=== PATIENT | male | born 1985 | race Caucasian/White ===

== ENCOUNTER 2019-11-26 18:32 | Emergency (ER) | payer OTHER, SELFPAY ==
[2019-11-26 18:41] VITALS: BP 112/75; PULSE 96; RESP 20; TEMP 37.4; O2SAT 100
--- NOTE | 2019-11-26 18:45 | ED.URI ---
HPI - URI/Sore Throat General Chief Complaint: Upper Respiratory Infection Stated Complaint: fever/cough/body aches Time Seen by Provider: 11/26/19 18:46 Source: patient, family and RN notes reviewed History of Present Illness HPI Narrative: Patient is a 34-year-old male that presents the urgent care with complaints of dry cough for 1 week, body aches, fever. Patient states that he was placed on Levaquin and prednisone from his PCP on the and he has been taking them as prescribed. Patient states that the initially felt better for 2 days and now has been feeling a little worse over the last 24 hours with fevers. Patient has not attempted to treat the fever. Patient did not call his PCP for further follow-up. Patient denies any imaging prior to treatment. No other acute complaints. Patient appears slightly fatigued but otherwise no acute distress noted. No obvious dyspnea noted. Patient spouse aware of the plan of care. Related Data Home Medications Medication Instructions Recorded Confirmed Robitussin Cough and Cold CF 11/26/19 levofloxacin 500 mg PO DAILY 11/26/19 11/26/19 prednisone 11/26/19 Allergies Allergy/AdvReac Type Severity Reaction Status Date / Time No Known Allergies Allergy Verified 11/26/19 18:49 Review of Systems Review of Systems: Narrative: CONSTITUTIONAL: Reports a fever EYES: Denies visual changes, redness, or discharge. ENT: Denies rhinorrhea, congestion, sore throat, or otalgia. CARDIOVASCULAR: Denies chest pain, palpitations, or edema. RESPIRATORY: Reports of cough GASTROINTESTINAL: Denies abdominal pain, nausea, vomiting, or diarrhea. GENITOURINARY: Denies dysuria or hematuria. SKIN: Denies rash or itching. MUSCULOSKELETAL: Denies back pain, joint pain; reports of body aches NEUROLOGIC: Denies headache, numbness, or weakness. PMFSH Comments At the time of my signature, I reviewed and agree with the nursing past medical, surgical, social, and family history. There is no relevant family history pertinent to the patient complaint. Exam Narrative: Exam Narrative: GENERAL: This is a well-nourished, well-developed patient, appears slightly flushed and fatigued HEAD: normocephalic, atraumatic. EYES: PERRL. Sclera clear/white. Vision is grossly intact. EARS: External ears normal, auditory canals clear and without drainage, TMs normal without perforation. Hearing grossly intact. NOSE: External nose normal with no obvious nasal discharge, bilateral erythemic nares with clear rhinorrhea THROAT: Mucous membranes moist, posterior pharynx clear. Mild postnasal drainage NECK: Neck supple, non-tender without lymphadenopathy, masses or thyromegaly. CARDIOVASCULAR: Regular rate and rhythm without murmurs, gallops, or rubs. RESPIRATORY: Clear to auscultation. Diminished right lower lobe SKIN: warm, intact with no suspicious lesions or rash, good texture and turgor. NEURO: awake, alert, and oriented to person, place and time. There were no obvious focal neurologic abnormalities. EXTREMITIES: No clubbing, cyanosis, or edema. Course Vital Signs Vital signs: Vital Signs Temperature 99.3 F 11/26/19 18:41 Pulse Rate 96 11/26/19 18:41 Respiratory Rate 20 11/26/19 18:41 Blood Pressure 112/75 11/26/19 18:41 Pulse Oximetry 100 11/26/19 18:41 Temperature 99.3 F 11/26/19 18:41 Pulse Rate 96 11/26/19 18:41 Respiratory Rate 20 11/26/19 18:41 Blood Pressure 112/75 11/26/19 18:41 Pulse Oximetry 100 11/26/19 18:41 Reviewed MDM - URI/Sore Throat MDM Narrative Medical decision making narrative: Reviewed lab results with the patient. He is aware that flu swab was negative.Advised the patient to continue taking the Levaquin and steroids as prescribed from his PCP. Treat fevers as needed with Tylenol and ibuprofen. Make sure to eat and drink with the medication. Increase water intake. Use humidifier at night. If you develop any increase in symptoms associated with persiste
== END 2019-11-26 19:00 | disposition home or self-care (01) ==
PROVIDERS: Emergency Provider Nurse Practitioner Family
DX: J02.9 Acute pharyngitis, unspecified (principal)
CPT/HCPCS: 99211; G0463